=== PATIENT | female | born 1990 | race Hispanic/Latino ===

== ENCOUNTER 2022-04-04 01:47 | Emergency (ER) | payer OTHER, SELFPAY ==
[2022-04-04] MEDS ORDERED: HYDROCODONE/APAP 5/325 MG TAB ONE (02:06)
[2022-04-04] MEDS ORDERED: propofoL 200 MG/20 ML VIAL IV ONE (03:52)
[2022-04-04] MEDS ORDERED: NA CHLORIDE 0.9% 1,000 ML ONE (04:17)
[2022-04-04] MEDS ORDERED: KETAMINE HCL 500 MG/5 ML VIAL ONE (04:41)
--- NOTE | 2022-04-04 06:26 | ER ---
Nurse's Notes [facility] Name: Shahida Crowe Age: 31 yrs Sex: Female : 1990 Arrival Date: 04/04/2022 Time: :55 Bed 5 Private MD: Diagnosis: Displaced trimalleolar fracture of right lower leg, initial encounter for closed fracture;Right ankle fracture dislocation, closed Presentation: 04/04 01:55 Chief complaint: EMS states: "Patient fell in the dinning room and it looks like a tw5 closed fracture. There is some pretty significant swelling.". Care prior to arrival: Splint applied. Mechanism of Injury: Fall Trauma event details: Injury occurred in the [facility], Injury occurred: at home. Injury occurred: April 04, 2022 Injury occurred at: 12:40. 01:55 Acuity: CURRY 3 tw5 :55 Method Of Arrival: EMS: [facility] tw5 02:01 Coronavirus screen: Vaccine status: Patient reports being unvaccinated. Ebola Screen: tw5 Patient negative for fever greater than or equal to 101.5 degrees Fahrenheit, and additional compatible Ebola Virus Disease symptoms Patient denies exposure to infectious person. Patient denies travel to an Ebola-affected area in the 21 days before illness onset. Initial Sepsis Screen: Does the patient meet any 2 criteria? HR > 90 bpm. Does the patient have a suspected source of infection? No. Patient's initial sepsis screen is negative. Risk Assessment: Do you want to hurt yourself or someone else? Patient reports no desire to harm self or others. Onset of symptoms was April 03, 2022 at 12:40. Triage Assessment: 02:02 Neuro: No deficits noted. Cardiovascular: No deficits noted. Respiratory: No deficits tw5 noted. 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 - Social history:: Smoking status: Patient denies any tobacco usage or history of. Screenin:55 Abuse screen: Denies threats or abuse. Denies injuries from another. Tuberculosis tw5 screening: No symptoms or risk factors identified. Primary Survey: 01:55 NO uncontrolled hemorrhage observed. A: The client is awake and alert. The airway is tw5 patent. Breathing/Chest: Spontaneous respiratory effort, equal unlabored respirations, breath sounds clear bilaterally, regular pattern, symmetrical chest rise and fall. Circulation: No external hemorrhage present. Regular and strong central pulse, skin warm/dry/normal color. Disability Pupils are equal, round, reactive to light and accommodation. Exposure/Environment: All clothing and personal items were removed. pants cut up to knee. Reassessment Alertness and Airway: Awake and alert. The airway is patent. Breathing: Spontaneous respiratory effort, equal unlabored respirations, breath sounds clear bilaterally, regular pattern with symmetrical chest rise and fall. Circulation: No external hemorrhage noted. Regular and strong central pulse, skin warm/dry/normal color. Disability: Pupils Pupils are equal, round, reactive to light and accomodation. Secondary Survey: 01:55 Musculoskeletal: Swelling present in right ankle. tw5 Assessment: 01:55 General: Appears uncomfortable, Behavior is crying. Pain: Complains of pain in right tw5 ankle Pain currently is 10 out of 10 on a pain scale. 02:44 General: Appears in no apparent distress. uncomfortable, Behavior is calm, cooperative. jb4 Pain: Complains of pain in right ankle Pain currently is 3 out of 10 on a pain scale. Neuro: Level of Consciousness is awake, alert, obeys commands, Oriented to person, place, time, situation. Cardiovascular: Patient's skin is warm and dry. Pulses are 3+ in right dorsalis pedis artery. Respiratory: Airway is patent Trachea midline Respiratory effort is even, unlabored, Respiratory pattern is regular, symmetrical. GI: No signs and/or symptoms were reported involving the gastrointestinal system. : No signs and/or symptoms were reported regarding the genitourinary system. EENT: No signs and/or symptoms were reported regarding the EENT system. Derm: Skin is intact, Skin is pink, warm \\T\\ dry. Musculoskeletal: Swelling present in right ankle. 04:05 Reassessment: Patient and/or family updated on plan of care and expected duration. Pain ha1 level reassessed. Patient is alert, oriented x 3, equal unlabored respirations, skin warm/dry/pink. informed pt. about the procedure. pt. education provided. consent for treatment signed. 04:47 Reassessment: Patient and/or family updated on plan of care and expected duration. Pain ha1 level reassessed. Patient is alert, oriented x 3, equal unlabored respirations, skin warm/dry/pink. 04:47 General: conscious sedation started. in shift at bedside. charge nurse at bedside. ha1 Oxygen and suction device at bedside.. 04:47 Neuro: Level of Consciousness is stuporous. Respiratory: Airway is patent Respiratory ha1 effort is even, unlabored, Respiratory pattern is regular, symmetrical. 05:12 Reassessment: post procedure. unable to voluntary move extremities. arousable. ha1 05:12 Respiratory: Airway is patent Respiratory effort is even, unlabored, Respiratory ha1 pattern is regular, symmetrical. 05:21 Reassessment: pt. lethargic. crying. States "I am having horrible dreams" AOX2 name and ha1 place. 05:21 Respiratory: Respiratory effort is even, unlabored, Respiratory pattern is regular, ha1 symmetrical. 05:45 Reassessment: Patient is alert, oriented x 3, equal unlabored respirations, skin ha1 warm/dry/pink. Neuro: Level of Consciousness is awake, alert, obeys commands, Oriented to person, place, time, situation. Respiratory: Airway is patent Trachea midline Respiratory effort is even, unlabored, Respiratory pattern is regular, symmetrical. 05:55 Reassessment: Patient and/or family updated on plan of care and expected duration. Pain ha1 level reassessed. Patient is alert, oriented x 3, equal unlabored respirations, skin warm/dry/pink. Patient denies pain at this time. 06:50 Reassessment: Patient and/or family updated on plan of care and expected duration. Pain ha1 level reassessed. Patient is alert, oriented x 3, equal unlabored respirations, skin warm/dry/pink. provided education about the proper used of crotches Patient denies pain at this time. 07:15 Reassessment: Patient and/or family updated on plan of care and expected duration. Pain ha1 level reassessed. Patient is alert, oriented x 3, equal unlabored respirations, skin warm/dry/pink. awaiting for friend to pick her up. ride home. Vital Signs: 01:55 BP 134 / 108; Pulse 113; Resp 22; Temp 98.4; Pulse Ox 98% on R/A; Weight 68.04 kg; tw5 Height 5 ft. 4 in. (162.56 cm); Pain 9/10; 04:40 BP 106 / 53; Pulse 103; Resp 17 S; Pulse Ox 98% on R/A; ha1 04:45 BP 113 / 62; Pulse 107; Resp 16; Temp 99.2; Pulse Ox 100% ; ha1 04:47 BP 113 / 59; Pulse 105; Resp 16 S; Pulse Ox 96% on R/A; ha1 04:56 BP 125 / 61; Pulse 117; Resp 19 S; Pulse Ox 100% on 3 lpm NC; ha1 05:12 BP 129 / 62; Pulse 114; Resp 23 S; Pulse Ox 99% on 3 lpm NC; ha1 05:16 BP 123 / 63; Pulse 113; Resp 22 S; Pulse Ox 99% on 3 lpm NC; ha1 05:21 BP 114 / 69; Pulse 113; Resp 18 S; Pulse Ox 99% on 3 lpm NC; ha1 05:55 BP 116 / 57; Pulse 99; Resp 20 S; Pulse Ox 99% on R/A; ha1 06:50 BP 110 / 58; Pulse 99; Resp 17 S; Pulse Ox 98% on R/A; ha1 01:55 Body Mass Index 25.75 (68.04 kg, 162.56 cm) tw5 Macrina Coma Score: 01:55 Eye Response: spontaneous(4). Verbal Response: oriented(5). Motor Response: obeys tw5 commands(6). Total: 15. Trauma Score (Adult): 01:55 Eye Response: spontaneous(1); Verbal Response: oriented(1); Motor Response: obeys tw5 commands(2); Systolic BP: > 89 mm Hg(4); Respiratory Rate: 10 to 29 per min(4); Min[place] Score: 15; Trauma Score: 12 ED Course: 01:55 Patient arrived in ED. 01:55 Soniya Moura MD is Attending Physician. sd2 01:55 Bed in low position. Call light in reach. Side rails up X2. Adult w/ patient. 01:57 Triage completed. 02:02 Arm band placed on left wrist. tw5 02:29 XRAY Ankle RIGHT 3 view In Process Unspecified. EDMS 02:44 Jamie Sanz, RN is Primary Nurse. jb4 04:29 Inserted saline lock: 22 gauge in left hand, using aseptic technique. tw5 04:35 Consent for conscious sedation explained by physician, signed by patient. tw5 04:35 Client placed on continuous cardiac and pulse oximetry monitoring. NIBP monitoring tw5 applied. 04:47 Assisted with CS. Timeout performed. tw5 05:10 Ankle Right 2 View In Process Unspecified. EDMS 05:17 Orthoglass splint: Posterior short lleg splint applied on right leg. stirrup splint mm9 applied on right leg. 06:26 Rafael Crowley MD is Referral Physician. sd2 07:18 IV discontinued, intact, bleeding controlled, No redness/swelling at site. Pressure ha1 dressing applied. Administered Medications: 02:10 Drug: HYDROcodone-acetaminophen 5 mg-325 mg 1 tabs Route: PO; tw5 02:30 Follow up: Response: No adverse reaction; Pain is decreased; RASS: Alert and Calm (0) ha1 04:55 Drug: Propofol 100 mg Route: IVP; Site: left antecubital; ha1 06:13 Follow up: Response: No adverse reaction; RASS: Alert and Calm (0) ha1 05:00 Drug: Ketamine 100 mg Route: IVP; Site: left antecubital; ha1 06:14 Follow up: Response: No adverse reaction; RASS: Alert and Calm (0) ha1 06:05 CANCELLED (Other Intervention Used): Ketamine 1 mg/kg IVP once tw5 06:08 Not Given (Other Intervention Used): Propofol 2 mg/kg IVP once; Document RASS score. To tw5 be given by physician for sedation Medication: 07:18 VIS not applicable for this client. ha1 Intake: 01:55 PO: 0ml; Total: 0ml. tw5 Output: 01:55 Urine: 0ml; Total: 0ml. tw5 Outcome: 06:26 Discharge ordered by . sd2 07:17 Discharged to home via wheelchair, with crutches, with family. ha1 07:17 Condition: stable 07:17 Discharge instructions given to patient, family, Instructed on discharge instructions, follow up and referral plans. medication usage, Demonstrated understanding of instructions, follow-up care, medications, Prescriptions given X 2. 07:22 Patient left the ED. ha1 Signatures: Dispatcher [employer] EDJamie Deutsch RN RN [email or web address] Comfort Kern tw5 Soniya Moura MD MD sd2 Katelynn Fan RN RN [email or web address] Meghan Zheng mm9
--- NOTE | 2022-04-04 06:27 | EDPHYS ---
Physician Documentation [facility] Name: Shahida Crowe Age: 31 yrs Sex: Female : 1990 Arrival Date: 04/04/2022 Time: 01:55 Bed 5 Private MD: ED Physician Soniya Moura HPI: 04/04 01:56 This 31 yrs old Female presents to ER via Unassigned with complaints of Fall sd2 Injury. 01:56 31 yo F presents with CC of fall injury. Reports drinking some tonight and that she was sd2 trying to put her shoe on when she tripped and fell injuring her ankle. NO other areas of pain. No LOC. Does not take blood thinners. 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 - Social history:: Smoking status: Patient denies any tobacco usage or history of. ROS: 01:56 Constitutional: Negative for fever, chills, and weight loss, Eyes: Negative for injury, sd2 pain, redness, and discharge, Cardiovascular: Negative for chest pain, palpitations, and edema, Respiratory: Negative for shortness of breath, cough, wheezing. Abdomen/GI: Negative for abdominal pain, nausea, vomiting, diarrhea. MS/Extremity: Positive for injury and deformity, Skin: Negative for injury, rash, and discoloration, Neuro: Negative for headache, numbness and tingling. Exam: 01:56 Constitutional: This is a well developed, well nourished patient who is awake, alert, sd2 and in no acute distress. Head/Face: Normocephalic, atraumatic. Eyes: EOMI, normal conjunctiva bilaterally Chest/axilla: Normal chest wall appearance and motion. Nontender with no deformity. Cardiovascular: Regular rate and rhythm with a normal S1 and S2. No gallops, murmurs, or rubs. 2+ distal pulses. Respiratory: Lungs have equal breath sounds bilaterally, clear to auscultation and percussion. No rales, rhonchi or wheezes noted. No increased work of breathing, no retractions or nasal flaring. Abdomen/GI: Soft, non-tender, with normal bowel sounds. No guarding or rebound. No evidence of tenderness throughout. Skin: Warm, dry with normal turgor. Normal color with no rashes, no lesions, and no evidence of cellulitis. MS/ Extremity: Pulses equal, no cyanosis. Neurovascular intact. Full, normal range of motion. Ambulatory without difficulty. Psych: Awake, alert, with orientation to person, place and time. Behavior, mood, and affect are within normal limits. Vital Signs: 01:55 BP 134 / 108; Pulse 113; Resp 22; Temp 98.4; Pulse Ox 98% on R/A; Weight 68.04 kg; tw5 Height 5 ft. 4 in. (162.56 cm); Pain 9/10; 04:40 BP 106 / 53; Pulse 103; Resp 17 S; Pulse Ox 98% on R/A; ha1 04:45 BP 113 / 62; Pulse 107; Resp 16; Temp 99.2; Pulse Ox 100% ; ha1 04:47 BP 113 / 59; Pulse 105; Resp 16 S; Pulse Ox 96% on R/A; ha1 04:56 BP 125 / 61; Pulse 117; Resp 19 S; Pulse Ox 100% on 3 lpm NC; ha1 05:12 BP 129 / 62; Pulse 114; Resp 23 S; Pulse Ox 99% on 3 lpm NC; ha1 05:16 BP 123 / 63; Pulse 113; Resp 22 S; Pulse Ox 99% on 3 lpm NC; ha1 05:21 BP 114 / 69; Pulse 113; Resp 18 S; Pulse Ox 99% on 3 lpm NC; ha1 05:55 BP 116 / 57; Pulse 99; Resp 20 S; Pulse Ox 99% on R/A; ha1 06:50 BP 110 / 58; Pulse 99; Resp 17 S; Pulse Ox 98% on R/A; ha1 01:55 Body Mass Index 25.75 (68.04 kg, 162.56 cm) tw5 Macrina Coma Score: 01:55 Eye Response: spontaneous(4). Verbal Response: oriented(5). Motor Response: obeys tw5 commands(6). Total: 15. Trauma Score (Adult): 01:55 Eye Response: spontaneous(1); Verbal Response: oriented(1); Motor Response: obeys tw5 commands(2); Systolic BP: > 89 mm Hg(4); Respiratory Rate: 10 to 29 per min(4); Whiting Score: 15; Trauma Score: 12 Procedures: 05:15 Splinting: Splint applied to right leg and right ankle using Orthoglass splint, applied sd2 by myself. tech. post reduction film - reveals improved alignment, Examined by me, post splint application: neurovascular intact, 2+ distal pulses palpable, brisk capillary refill noted, Patient tolerated well. Reduction: of the right ankle, using traction, manipulation, flexion, Immobilized with Short leg splint with stirrup. Patient tolerated well. Post reduction film - reveals improved alignment. Moderate sedation: Pre-procedure assessment: ASA physical classification: I - healthy, no underlying organic disease, Airway assessment: able to hyperextend neck, able to maintain airway, can open mouth without difficulty, Mallampati classification of tongue size: I - faucial pillars, soft palate, and uvula can be fully visualized, Monitoring during procedure: quality assurance monitor final, continuous pulse oximetry, nurse at bedside at all times, Medications employed: Ketamine, 100 mg(s), Propofol 90 mg, Post-procedure assessment: the patient is mildly sedated, Respiratory status: even and unlabored, a reversal agent was not used. MDM: 01:55 Patient medically screened. sd2 01:56 Differential diagnosis: Differential diagnosis includes but is not limited to: sd2 Fracture, contusion, abrasion, closed head injury, pneumothorax, intra-abdominal injury, intracranial hemorrhage, spinal injury among others. Data reviewed: vital signs, nurses notes, EMS record. 05:15 Data reviewed: radiologic studies. Counseling: I had a detailed discussion with the sd2 patient and/or guardian regarding: the historical points, exam findings, and any diagnostic results supporting the discharge/admit diagnosis, radiology results, the need for outpatient follow up. ED course: Results discussed with patient and need for sedation and reduction. Pt consented and sedated with ketamine and propofol with successful reduction. pt closed and NVI. Trimalleolar fracture is unstable. Pt will need follow up with Orthopedics. Pt comfortable with plan for discharge and outpatient follow up. Will plan for discharge once patient fully awake from procedural sedation.. 04/04 01:56 Order name: MARYAY Ankle RIGHT 3 view sd2 04/04 05:10 Order name: Ankle Right 2 View EDMO 04/04 06:03 Order name: Percy sd2 Administered Medications: 02:10 Drug: HYDROcodone-acetaminophen 5 mg-325 mg 1 tabs Route: PO; tw5 02:30 Follow up: Response: No adverse reaction; Pain is decreased; RASS: Alert and Calm (0) ha1 04:55 Drug: Propofol 100 mg Route: IVP; Site: left antecubital; ha1 06:13 Follow up: Response: No adverse reaction; RASS: Alert and Calm (0) ha1 05:00 Drug: Ketamine 100 mg Route: IVP; Site: left antecubital; ha1 06:14 Follow up: Response: No adverse reaction; RASS: Alert and Calm (0) ha1 06:05 CANCELLED (Other Intervention Used): Ketamine 1 mg/kg IVP once tw5 06:08 Not Given (Other Intervention Used): Propofol 2 mg/kg IVP once; Document RASS score. To tw5 be given by physician for sedation Disposition Summary: 04/04/22 06:26 Discharge Ordered Location: Home sd2 Problem: new sd2 Symptoms: have improved sd2 Condition: Stable sd2 Diagnosis - Displaced trimalleolar fracture of right lower leg, initial encounter for closed sd2 fracture - Right ankle fracture dislocation, closed sd2 Followup: sd2 - With: - When: 1 - 2 days - Reason: Recheck today's complaints, Continuance of care Discharge Instructions: - Discharge Summary Sheet sd2 - Displaced Trimalleolar Ankle Fracture Treated With ORIF sd2 - Closed Reduction for Ankle Fracture or Dislocation sd2 Forms: - Medication Reconciliation Form sd2 - Thank You Letter sd2 - Antibiotic Education sd2 - Prescription Opioid Use sd2 Prescriptions: - Ibuprofen 800 mg Oral Tablet - take 1 tablet by ORAL route every 8 hours As needed take with food; 30 tablet; sd2 Refills: 0, Product Selection Permitted - Tylenol-Codeine #3 300 mg-30 mg Oral - take 1 tablet by ORAL route every 6 hours As needed; 12 tablet; Refills: 0, sd2 Product Selection Permitted Signatures: Dispatcher [employer] Comfort Severino tw5 Soniya Moura MD MD sd2 Katelynn Fan RN RN ha1 Corrections: (The following items were deleted from the chart) 05:09 05:06 Ankle Right 3 View+[email or web address] ordered. EDMS EDMS 06:05 04:40 Ketamine 1 mg/kg IVP once ordered. sd2 tw5
[2022-04-04 07:29] VITALS: TEMP 99.2
[2022-04-04 07:38] VITALS: BP 110/58; O2SAT 98
--- NOTE | 2022-04-05 15:05 | RAD REPORT ---
EXAM DESCRIPTION: Ankle Right 2 View RadLex: XR ANKLE 2 VIEWS CLINICAL HISTORY PAIN; COMPARISON: Right ovary graft from approximately 2.5 hours earlier on today's date. FINDINGS: Mildly displaced medial and lateral malleolus fractures again seen involving the right ank le. Posterior tibiotalar subluxation seen on the previous exam has been reduced. There is no new frac ture or dislocation. The joint spaces are in anatomic alignment. There is no significant soft tissue swelling. IMPRESSION: Improved alignment of bimalleolar right ankle fracture as described above. No new fracture identified. Electronically signed by: Yusef Ashley MD 04/04/2022 5:21 AM AUTOMOTIVE BRAKE TECHNICIAN Due to temporary technical issues with the PACS/Fluency reporting system, reports are being signed by the in house radiologists without review as a courtesy to insure prompt reporting. The interpreting radiologist is fully responsible for the content of the report.
--- NOTE | 2022-04-05 15:07 | RAD REPORT ---
EXAM DESCRIPTION: XR Right Ankle Complete, 3 or More Views CLINICAL HISTORY: The patient is 31 years old and is Female; PAIN TECHNIQUE: Frontal, lateral and oblique views of the right ankle. COMPARISON: No relevant prior studies available. FINDINGS: BONES/JOINTS: Anterior dislocation of the tibiotalar joint is noted. Disruption of the a nkle mortise is present. Displaced distal fibular diaphyseal fracture is noted. Displaced medial mall eolar fracture is present. SOFT TISSUES: Diffuse soft tissue swelling about the ankle is present. IMPRESSION: Bimalleolar fracture with associated dislocation of the tibiotalar joint. Electronically signed by: Josselyn Cano MD 04/04/2022 3:20 AM REACTOR OPERATOR Due to temporary technical issues with the PACS/Fluency reporting system, reports are being signed by the in house radiologists without review as a courtesy to insure prompt reporting. The interpreting radiologist is fully responsible for the content of the report.
== END 2022-04-04 07:22 | disposition home or self-care (01) ==
LOC: ER 01:47
PROC: 0QSJ34Z Reposition Right Fibula with Internal Fixation Device, Percutaneous Approach (ICD-10-PCS; principal; 2022-04-04)
PROC: 0QSGXZZ Reposition Right Tibia, External Approach (ICD-10-PCS; 2022-04-04)
DX: S82.851A Displaced trimalleolar fracture of right lower leg, initial encounter for closed fracture (principal)
CPT/HCPCS: 96374; 96375; 99285; J2704; J7030